=== PATIENT | female | born 2000 | race Two or more races ===

== ENCOUNTER 2020-02-19 03:02 | Observation (INO) | payer MEDICAID, OTHER ==
[~2020-02-19] VITALS: Ht 160 cm; Wt 77.0 kg
[~2020-02-19 03:02] MED LIST: NAPR500T8 PO
[2020-02-19] MEDS ORDERED: ACETAMINOPHEN 325 MG TABLET. PO ONE (04:45)
--- NOTE | 2020-02-19 04:49 | PHYS DOC ---
Past Medical History Past Medical History: No Pertinent History Past Surgical History: No Surgical History Smoking Status: Never Smoker Alcohol Use: None General Adult EDM: Chief Complaint: BACK PAIN - NO INJURY HPI: HPI: Patient is a 19 year old female who presents with mid thoracic back and epigastric abdominal pain. Patient reports that she is a 3 para 2 LC 2 approximately 24 weeks who presents to the emergency room with acute onset of pain in the thoracic back. She reports that started about 9:00 while she was going to bed. The pain is persisted. She reports that at times it seems to radiate towards the epigastrium and which movement may radiate towards the umbilicus. She denied any nausea, vomiting, diarrhea, constipation, change in urination, fever, chills or sweats. Patient denied any vaginal discharge,or bleeding. Patient reports that she has been able to eat without any difficulty. Patient denied any trauma but did report that she was mopping her floors today. Patient has not had any care and is estimating her gestational date. She reports it as a pressure/achiness that is constant and radiating as above. Review of Systems: Review of Systems: Constitutional: Denies fever or chills. [] Eyes: Denies change in visual acuity. [] HENT: Denies nasal congestion or sore throat. [] Respiratory: Denies cough or shortness of breath. [] Cardiovascular: Denies chest pain or edema. [] GI: See HPI. [] : Denies dysuria. [] Musculoskeletal: See HPI [] Integument: Denies rash. [] Neurologic: Denies headache, focal weakness or sensory changes. [] Endocrine: Denies polyuria or polydipsia. [] Lymphatic: Denies swollen glands. [] Psychiatric: Denies depression or anxiety. [] Heart Score: Risk Factors: Risk Factors: DM, Current or recent (<one month) smoker, HTN, HLP, family history of CAD, obesity. Risk Scores: Score 0 - 3: 2.5% MACE over next 6 weeks - Discharge Home Score 4 - 6: 20.3% MACE over next 6 weeks - Admit for Clinical Observation Score 7 - 10: 72.7% MACE over next 6 weeks - Early Invasive Strategies Allergies: Allergies: Allergies Coded Allergies Type Severity Reaction Last Updated Verified No Known Drug Allergies 05/02/14 No Physical Exam: PE: Constitutional: Well developed, well nourished, no acute distress, non-toxic appearance. [] HENT: Normocephalic, atraumatic, bilateral external ears normal, oropharynx moist, no oral exudates, nose normal. [] Eyes: PERRLA, EOMI, conjunctiva normal, no discharge. [] Neck: Normal range of motion, no tenderness, supple, no stridor. [] Cardiovascular:Heart rate regular rhythm, no murmur [] Lungs & Thorax: Bilateral breath sounds clear to auscultation [] Abdomen: Bowel sounds normal, soft, no tenderness, no masses, no pulsatile masses. [] Skin: Warm, dry, no erythema, no rash. [] Back: No tenderness, no CVA tenderness. There was some tenderness in the thoracic posterior rib cage that reproduced her pain, no midline tenderness of the spinous processes [] Extremities: No tenderness, no cyanosis, no clubbing, ROM intact, no edema. [] Neurologic: Alert and oriented X 3, normal motor function, normal sensory function, no focal deficits noted. [] Psychologic: Affect normal, judgement normal, mood normal. [] Current Patient Data: Vital Signs: Vital Signs Date Time Temp Pulse Resp B/P (MAP) Pulse Ox O2 Delivery O2 Flow Rate FiO2 02/19/20 04:05 97.8 108 18 133/90 (104) 98 Room Air 97.8 EKG: EKG: [] Radiology/Procedures: Radiology/Procedures: [] Course & Med Decision Making: Course & Med Decision Making Pertinent Labs and Imaging studies reviewed. (See chart for details) 0548-the patient was seen and evaluated. Work-up ensued here including an ultrasound of the abdomen for . This indicated that she was about 28 weeks along. Work-up here is not indicative of any exigent medical condition at this time. Patient will be admitted to OB for further evaluation. I discussed the case with Dr. Shanks [] Milagros Disclaimer: Milagros Disclaimer: This electronic medical record was generated, in whole or in part, using a voice recognition dictation system. Departure Departure Impression: Primary Impression: Abdominal pain affecting Additional Impression: Acute thoracic back pain Qualified Codes: M54.6 - Pain in thoracic spine Disposition: ADMITTED INPATIENT Condition: STABLE Referrals: NO PCP (PCP) Justicifation of Admission Dx: Justifications for Admission: Justification of Admission Dx: Yes Comments: STAN QUINONES MD Feb 19, 2020 04:48
[2020-02-19 04:53] LABS: BILIRUBIN,URINE NEGATIVE (NEG); CLARITY,URINE CLEAR; COLOR,URINE YELLOW; NITRITE,URINE NEGATIVE (NEG); PROTEIN,URINE NEGATIVE (NEG-TRACE)
[2020-02-19 05:03] LABS: BACTERIA,URINE MANY /HPF (0-FEW); RBC,URINE OCC /HPF (0-2)
[2020-02-19 05:04] LABS: SQUAMOUS EPITHELIAL CELL,UR MANY /LPF
--- NOTE | 2020-02-19 05:20 | RAD ---
Limited obstetric ultrasound HISTORY: Abdominal pain and . FINDINGS: Single living intrauterine fetus is documented in cephalic position with estimated sonographic gestational age of 28 weeks 0 days and date of delivery of May 13, 2020. This is slightly age advanced relative to the clinical gestational age of 25 weeks 0 days. heart rate 131 bpm. Estimated weight 1144 g, 93rd percentile. Head/abdominal discomfort ratio 1.15. Cephalic index 75.1 percent. biparietal diameter 6.83 cm, gestational age 27 weeks 3 days, 98th percentile. Head circumference 26.24 cm, gestational age 28 weeks 4 days. Abdominal circumference 22.75 cm, gestational age 27 weeks 1 day, 94th percentile. Femur length 5.47 cm, gestational age 20 weeks 6 days. Amniotic fluid index 12.1 cm. Placenta is fundal and anterior. No placenta previa was documented although the maternal cervix is not well visualized on the images. Maternal ovaries not documented. anatomic survey was not performed. IMPRESSION: Single living intrauterine fetus with estimated sonographic gestational age of 28 weeks 0 days as described above. Electronically signed by: Dl Delgado MD (02/19/2020 5:17 AM) [facility]
[2020-02-19 05:22] LABS: BASO % 1 % (0-3); EOS % 1 % (0-3); HEMATOCRIT 39.2 % (36.0-47.0); HEMOGLOBIN 13.5 g/dL (12.0-15.5); LYMPH # 1.5 x10^3/uL (1.0-4.8); LYMPH % 17 % (24-48); MEAN CORPUSCULAR HEMOGLOBIN 31 pg (25-35); MEAN CORPUSCULAR HGB CONC 34 g/dL (31-37); MEAN CORPUSCULAR VOLUME 91 fL (79-100); MONO # 0.6 x10^3/uL (0.0-1.1); MONO % 6 % (0-9); NEUT # 7.1 x10^3/uL (1.8-7.7); NEUT % 76 % (31-73); PLATELET COUNT 285 x10^3/uL (140-400); WHITE BLOOD COUNT 9.3 x10^3/uL (4.0-11.0)
[2020-02-19 05:32] LABS: CALCIUM 8.5 mg/dL (8.5-10.1); CREATININE 0.5 mg/dL (0.6-1.0); GFR 155.7; POTASSIUM 3.5 mmol/L (3.5-5.1)
[2020-02-19 05:38] LABS: ALBUMIN 2.7 g/dL (3.4-5.0); ALBUMIN/GLOBULIN RATIO 0.6 (1.0-1.7); TOTAL BILIRUBIN 0.8 mg/dL (0.2-1.0); TOTAL PROTEIN 7.2 g/dL (6.4-8.2)
[2020-02-19 06:55] VITALS: BP 128/81
[2020-02-19] MEDS ORDERED: IV RINGERS,LACTATED 1000ML 1,000 ML IV PRN (10:15)
--- NOTE | 2020-02-19 13:08 | PDOC ---
[facility] PROGRESS NOTE Date of Service: DATE: 02/19/20 TIME: 13:02 Subjective: who has not established care difficulty establishing care due to Covid (appts rescheduled by [facility], etc) pt with significant back pain last night. Also had SOA when she sat up. Improved pain after observation AST and ALT elevated (157, 125 respectively) Also noted to have elevated random glucose of 131 Pt reports that she was taking Motrin for the pain Pt denies any pruritis u/s - gestational age of 28 weeks 0 days and date of delivery of May 13, 2020 (3wks difference from LMP predicted - 25.0) Objective: Vital Signs: Vital Signs Date Time Temp Pulse Resp B/P (MAP) Pulse Ox O2 Delivery O2 Flow Rate FiO2 02/19/20 04:05 97.8 108 18 133/90 (104) 98 Room Air 97.8 Vital Signs Date Time Temp Pulse Resp B/P (MAP) Pulse Ox O2 Delivery O2 Flow Rate FiO2 02/19/20 06:55 97.7 89 16 128/81 (97) 95 Room Air 97.7 Labs: Laboratory Tests Test 02/19/20 03:10 02/19/20 05:15 02/19/20 06:25 Urine Collection Type Unknown Urine Color Yellow Urine Clarity Clear Urine pH 8.0 (<5.0-8.0) Urine Specific [place] 1.010 (1.000-1.030) Urine Protein Negative mg/dL (NEG-TRACE) Urine Glucose (UA) Negative mg/dL (NEG) Urine Ketones (Stick) Trace mg/dL (NEG) Urine Blood Negative (NEG) Urine Nitrite Negative (NEG) Urine Bilirubin Negative (NEG) Urine Urobilinogen Dipstick 1.0 mg/dL (0.2 mg/dL) Urine Leukocyte Esterase Moderate (NEG) Urine RBC Occ /HPF (0-2) Urine WBC 11-20 /HPF (0-4) Urine Squamous Epithelial Cells Many /LPF Urine Bacteria Many /HPF (0-FEW) Urine Mucus Slight /LPF White Blood Count 9.3 x10^3/uL (4.0-11.0) Red Blood Count 4.30 x10^6/uL (3.50-5.40) Hemoglobin 13.5 g/dL (12.0-15.5) Hematocrit 39.2 % (36.0-47.0) Mean Corpuscular Volume 91 fL (79-100) Mean Corpuscular Hemoglobin 31 pg (25-35) Mean Corpuscular Hemoglobin Concent 34 g/dL (31-37) Red Cell Distribution Width 13.0 % (11.5-14.5) Platelet Count 285 x10^3/uL (140-400) Neutrophils (%) (Auto) 76 % (31-73) H Lymphocytes (%) (Auto) 17 % (24-48) L Monocytes (%) (Auto) 6 % (0-9) Eosinophils (%) (Auto) 1 % (0-3) Basophils (%) (Auto) 1 % (0-3) Neutrophils # (Auto) 7.1 x10^3/uL (1.8-7.7) Lymphocytes # (Auto) 1.5 x10^3/uL (1.0-4.8) Monocytes # (Auto) 0.6 x10^3/uL (0.0-1.1) Eosinophils # (Auto) 0.0 x10^3/uL (0.0-0.7) Basophils # (Auto) 0.0 x10^3/uL (0.0-0.2) Sodium Level 138 mmol/L (136-145) Potassium Level 3.5 mmol/L (3.5-5.1) Chloride Level 102 mmol/L (98-107) Carbon Dioxide Level 24 mmol/L (21-32) Anion Gap 12 (6-14) Blood Urea Nitrogen 5 mg/dL (7-20) L Creatinine 0.5 mg/dL (0.6-1.0) L Estimated GFR (Cockcroft-Gault) 155.7 BUN/Creatinine Ratio 10 (6-20) Glucose Level 131 mg/dL (70-99) H Calcium Level 8.5 mg/dL (8.5-10.1) Total Bilirubin 0.8 mg/dL (0.2-1.0) Aspartate Amino Transferase (AST) 157 U/L (15-37) H Alanine Aminotransferase (ALT) 125 U/L (14-59) H Alkaline Phosphatase 115 U/L (46-116) Total Protein 7.2 g/dL (6.4-8.2) Albumin 2.7 g/dL (3.4-5.0) L Albumin/Globulin Ratio 0.6 (1.0-1.7) L Lipase 100 U/L (73-393) SARS-CoV-2 Antigen (Rapid) Negative (NEGATIVE) Laboratory Tests 02/19/20 05:15 Laboratory Tests 02/19/20 05:15 Laboratory Tests 02/19/20 05:15 Physical Exam: GENERAL: No apparent distress. Alert and oriented. HEENT: Head normocephalic, atraumatic. NECK: Supple LUNGS: Clear to auscultation. HEART: RRR, S1, S2 present, pulses intact ABDOMEN: Soft, positive bowel sounds. EXTREMITIES: No cyanosis or edema. NEUROLOGIC: Normal speech, normal tone PSYCHIATRIC: Normal affect, normal mood. SKIN: No ulceration. Assessment & Plan: f/u in 1-2wks in the office Tylenol to replace Motrin repeat labs ?GDM BIJAL KOENIG MD Feb 19, 2020 13:08
== END 2020-02-19 15:53 | disposition home or self-care (01) ==
LOC: ER 03:02 → 3 NORTH 05:54 → 3 SO LND 08:26
PROVIDERS: ADMIT Obstetrics & Gynecology; ATTEND Obstetrics & Gynecology
DX: O26.893 Other specified pregnancy related conditions, third trimester (principal); R10.13 Epigastric pain; M54.6 Pain in thoracic spine; Z20.828 Contact with and (suspected) exposure to other viral communicable diseases; Z3A.28 28 weeks gestation of pregnancy
CPT/HCPCS: 36415; 76815; 80053; 81001; 83690; 85025; 87086; 87426; 99284; G0378; U0003; G0379